=== PATIENT | female | born 1945 | race Caucasian/White ===

== ENCOUNTER 2020-04-13 13:44 | Outpatient (CLI) | payer MEDICARE ==
--- NOTE | 2020-04-13 15:41 | MMO ---
Bilateral MAMMO Bilat Diag [facility]. CLINICAL HISTORY: Patient is 74 years old and is seen for diagnostic exam. The patient has no family history of breast cancer. The patient has no personal history of cancer. VIEWS: The views performed were: bilateral craniocaudal with tomosynthesis; bilateral mediolateral oblique with tomosynthesis; and bilateral mediolateral with tomosynthesis. FILMS COMPARED: The present examination has been compared to prior imaging studies performed at [facility] on 04/13/2020, and at [facility] on 05/07/2019 and 08/11/2019. This study has been interpreted with the assistance of computer-aided detection. MAMMOGRAM FINDINGS: The breasts are heterogeneously dense, which could obscure a lesion on mammography. There is a stable mass with associated dystrophic calcifications seen in the middle region of the right breast at 12 o'clock. There are no suspicious masses, suspicious calcifications, or new areas of architectural distortion. IMPRESSION: THERE IS NO MAMMOGRAPHIC EVIDENCE OF MALIGNANCY. A ROUTINE FOLLOW-UP MAMMOGRAM IN 1 YEAR IS RECOMMENDED. THE RESULTS OF THIS EXAM WERE SENT TO THE PATIENT. ACR BI-RADS Category 2 - Benign finding MAMMOGRAPHY NOTE: 1. A negative mammogram report should not delay a biopsy if a dominant of clinically suspicious mass is present. 2. Approximately 10% to 15% of breast cancers are not detected by mammography. 3. Adenosis and dense breasts may obscure an underlying neoplasm. Reported by: LOVE GALDAMEZ MD Electonically Signed: [id number]
--- NOTE | 2020-04-13 16:57 | ULT ---
RIGHT BREAST ULTRASOUND: 04/13/20 HISTORY: Follow-up of a nodule with associated calcification within the right breast seen at approximately 1 o 'clock position. COMPARISON: Outside mammogram and ultrasound study of 08/11/19 and today's mammogram. Real time imaging of the area of concern which was a tiny nodule with calcifications within the right breast at approximately 12 to 1 o'clock position was performed. It is difficult to definitely visual ize this nodule. The area was much better appreciated on the mammogram films and appears entirely sta ble as compared to the previous mammogram study. IMPRESSION: BIRADS 2: Benign Finding(s) Routine annual screening mammography (for women over age 40).
== END 2020-04-13 13:45 | disposition home or self-care (01) ==
LOC: BICMAMMO 13:44
PROVIDERS: ATTEND Physician Assistant Medical
DX: R92.8 Other abnormal and inconclusive findings on diagnostic imaging of breast (principal); I10 Essential (primary) hypertension; E11.9 Type 2 diabetes mellitus without complications; E78.2 Mixed hyperlipidemia; D64.9 Anemia, unspecified; E55.9 Vitamin D deficiency, unspecified
CPT/HCPCS: 76642; 77066; 80053; 80061; 81001; 82306; 83036; 85025; G0279

== ENCOUNTER 2021-07-13 11:51 | Outpatient (CLI) | payer MEDICARE | END 2021-07-13 11:52 | disposition home or self-care (01) | LOC: BICMRI 11:51 | PROVIDERS: ATTEND Physician Assistant Medical | DX: R51.9 Headache, unspecified (principal); R41.0 Disorientation, unspecified; R11.2 Nausea with vomiting, unspecified; E78.2 Mixed hyperlipidemia; E11.9 Type 2 diabetes mellitus without complications; I10 Essential (primary) hypertension; I67.89 Other cerebrovascular disease | CPT/HCPCS: 70551 ==

== ENCOUNTER 2021-09-28 17:00 | Outpatient (CLI) | payer MEDICARE | END 2021-09-28 17:01 | disposition home or self-care (01) | LOC: SLEEPLAB 17:00 | PROVIDERS: ATTEND Internal Medicine Critical Care Medicine | DX: G47.33 Obstructive sleep apnea (adult) (pediatric) (principal); R53.83 Other fatigue | CPT/HCPCS: 95806 ==

== ENCOUNTER 2022-11-05 20:49 | Inpatient (IN) | payer MEDICARE ==
[2022-11-05 21:58] LABS: #Eosinphils 0.1 thou/uL (0.0-0.7); #Lymphocytes 1.5 thou/uL (1.20-3.40); #Monocytes 0.8 thou/uL (0.11-0.59); #Neutrophils 8.9 thou/uL (1.40-6.50); %Basophils 0.3 % (0.0-1.0); %Eosinophils 0.9 % (0.0-10.0); %Lymphocytes 13.3 % (21.0-51.0); %Monocytes 6.8 % (0.0-10.0); %Neutrophils 78.8 % (42.0-75.0); Hemoglobin 14.9 g/dL (12.0-16.0); Mean Corpuscular HGB CONC 30.7 g/dL (32.0-36.0); Mean Corpuscular Hemoglobin 26.5 pg (27.0-31.0); Mean Corpuscular Volume 86.4 fl (78.0-98.0); Mean Platelet Volume 10.1 fL (7.4-10.4); Platelet Count 235 10x3/uL (130-400); RBC Distribution Width 15.8 % (11.5-14.5); Red Blood Cell (RBC) Count 5.61 mill/uL (4.20-5.40); White Blood Cell (WBC) Count 11.3 10x3/uL (4.8-10.8)
[2022-11-05 22:21] LABS: ALT (SGPT) 12 U/L (8-55); AST (SGOT) 12 U/L (5-34); Alkaline Phosphatase 81 U/L (40-110); Anion Gap 17 mmol/L (10-20); BUN (Urea Nitrogen) 38 mg/dL (9.8-20.1); Bilirubin, Total 0.4 mg/dL (0.2-1.2); Calc. Creatinine Clearance 0 mL/min (70-130); Calcium 9.8 mg/dL (7.8-10.44); Carbon Dioxide 24 mmol/L (23-31); Chloride 105 mmol/L (98-107); Estimated GFR 43; Glucose 151 mg/dL (83-110); Potassium 4.3 mmol/L (3.5-5.1); Sodium 142 mmol/L (136-145)
[2022-11-06] MEDS ORDERED: Ondansetron PF 4 MG/2 ML Vial IVP PRN (00:45)
[2022-11-06] MEDS ORDERED: Ondansetron ODT 4 MG TAB SL PRN (00:45)
[2022-11-06] MEDS ORDERED: hydrALAZINE 20 MG/ML VIAL SLOW IVP PRN (04:05)
[2022-11-06] MEDS ORDERED: Clopidogrel Bisulfate 75 MG TAB PO SCH (04:15)
[2022-11-06] MEDS ORDERED: Aspirin 81 mg Enteric Coated Tablet PO SCH (04:15)
[2022-11-06] MEDS ORDERED: Dextrose 50% Abboject 50 ML SYRINGE SLOW IVP PRN (04:41)
[2022-11-06] MEDS ORDERED: HumaLOG 300 UNITS/3 ML VIAL SC PRN (04:41)
[2022-11-06] MEDS ORDERED: Dextrose 5% in Water 1,000 ML IV PRN (04:41)
[2022-11-06] MEDS ORDERED: Aspirin Chewable 81 MG TAB ONE (04:58)
[2022-11-06] MEDS ORDERED: Clopidogrel Bisulfate 75 MG TAB ONE (04:58)
[2022-11-06 08:29] LABS: Bacteria/HPF 1+ HPF (None Seen); Bilirubin Negative (Negative); Blood, Urine Negative (Negative); Clarity Clear (Clear); Glucose, Urine (Dipstick) Greater than 1000 mg/dL (Negative); Ketone, Urine Negative (Negative); Leukocyte 500 Leu/uL (Negative); Nitrite Negative (Negative); Protein, Urine (Dipstick) Negative (Neg-Trace); RBC/HPF 0-3 HPF (0-3); Specific Gravity, Urine 1.026 (1.002-1.036); Squamous Epithelial None Seen HPF (0-3); Urobilinogen Normal mg/dL (Less than 2); WBC/HPF Greater than 50 HPF (0-3)
[2022-11-06] MEDS: Aspirin 81 mg Enteric Coated Tablet PO SCH (09:30)
[2022-11-06] MEDS: Enoxaparin Sodium 40 MG/0.4 ML SYRINGE SC SCH (09:30)
[2022-11-06] MEDS: cefTRIAXone\\ROCEPHIN 1 GM in Sodium Chloride 0.9% 100 ML IVPB SCH (09:30)
[2022-11-06] MEDS ORDERED: Enoxaparin Sodium 40 MG/0.4 ML SYRINGE ONE (09:42)
[2022-11-06] MEDS ORDERED: cefTRIAXone\\ROCEPHIN 1 GM VIAL ONE (09:42)
[2022-11-06] MEDS ORDERED: Aspirin 81 mg Enteric Coated Tablet ONE (09:42)
[2022-11-06] MEDS ORDERED: Magnevist 469MG/ML 20 ML VIAL ONE (15:43)
[2022-11-06 18:30] VITALS: BMI 28.6
[2022-11-06] MEDS: Atorvastatin Calcium 40 MG TAB PO SCH (20:47)
[2022-11-07 06:24] LABS: Cardiac Risk 6.2 (Less than 4.5)
[2022-11-07] MEDS ORDERED: FLU VACC QS2022-23(65YR UP)/PF 240 MCG/0.7 ML SYRINGE IM ONE (09:00)
[2022-11-07] MEDS ORDERED: Clopidogrel Bisulfate 75 MG TAB PO SCH (09:00)
[2022-11-07] MEDS: Enoxaparin Sodium 40 MG/0.4 ML SYRINGE SC SCH (09:47)
[2022-11-07] MEDS: Aspirin 81 mg Enteric Coated Tablet PO SCH (09:47)
[2022-11-07] MEDS: cefTRIAXone\\ROCEPHIN 1 GM in Sodium Chloride 0.9% 100 ML IVPB SCH (09:47)
[2022-11-07] MEDS: HumaLOG 300 UNITS/3 ML VIAL SC PRN (12:06)
[2022-11-07] MEDS: Atorvastatin Calcium 40 MG TAB PO SCH (21:16)
[2022-11-08 05:25] LABS: Hemoglobin 14.5 g/dL (12.0-16.0); Mean Corpuscular HGB CONC 30.3 g/dL (32.0-36.0); Mean Corpuscular Hemoglobin 26.2 pg (27.0-31.0); Mean Corpuscular Volume 86.5 fl (78.0-98.0); Mean Platelet Volume 10.4 fL (7.4-10.4); Platelet Count 247 10x3/uL (130-400); RBC Distribution Width 15.8 % (11.5-14.5); Red Blood Cell (RBC) Count 5.54 mill/uL (4.20-5.40); White Blood Cell (WBC) Count 8.7 10x3/uL (4.8-10.8)
[2022-11-08 05:29] LABS: Hemoglobin A1c 6.7 % (4.0-6.0)
[2022-11-08 05:49] LABS: Anion Gap 14 mmol/L (10-20); BUN (Urea Nitrogen) 23 mg/dL (9.8-20.1); Calc. Creatinine Clearance 57 mL/min (70-130); Calcium 9.6 mg/dL (7.8-10.44); Carbon Dioxide 26 mmol/L (23-31); Chloride 102 mmol/L (98-107); Estimated GFR 59; Glucose 148 mg/dL (83-110); Potassium 4.2 mmol/L (3.5-5.1); Sodium 138 mmol/L (136-145)
[2022-11-08] MEDS: HumaLOG 300 UNITS/3 ML VIAL SC PRN ×2 (06:20→11:43)
[2022-11-08] MEDS: Enoxaparin Sodium 40 MG/0.4 ML SYRINGE SC SCH (08:41)
[2022-11-08] MEDS: Aspirin 81 mg Enteric Coated Tablet PO SCH (08:41)
[2022-11-08] MEDS: cefTRIAXone\\ROCEPHIN 1 GM in Sodium Chloride 0.9% 100 ML IVPB SCH (08:42)
[2022-11-08] MEDS ORDERED: Metamucil PACK PO PRN (12:03)
[2022-11-08 15:53] VITALS: BP 132/71; TEMP 97.4
== END 2022-11-08 17:42 | DRG 65 ==
LOC: ERS 20:49 → ERHOLD 11-06 00:33 → NEURO 11-06 18:04 → OBSVTOIN 11-07 12:35
PROVIDERS: ADMIT Student in an Organized Health Care Education/Training Program; ATTEND Emergency Medicine
PROC: 4A10X4Z Monitoring of Central Nervous Electrical Activity, External Approach (ICD-10-PCS; principal; 2022-11-06)
DX: I63.9 Cerebral infarction, unspecified (principal); N17.9 Acute kidney failure, unspecified; N30.01 Acute cystitis with hematuria; E11.9 Type 2 diabetes mellitus without complications; I10 Essential (primary) hypertension; E86.0 Dehydration; E78.1 Pure hyperglyceridemia; F03.90 Unspecified dementia, unspecified severity, without behavioral disturbance, psychotic disturbance, mood disturbance, and anxiety; Z20.822 Contact with and (suspected) exposure to COVID-19; E78.00 Pure hypercholesterolemia, unspecified; G93.89 Other specified disorders of brain; G83.14 Monoplegia of lower limb affecting left nondominant side; Z86.73 Personal history of transient ischemic attack (TIA), and cerebral infarction without residual deficits; Z98.890 Other specified postprocedural states; Z90.710 Acquired absence of both cervix and uterus
CPT/HCPCS: 36415; 36416; 70450; 70551; 71045; 72158; 80048; 80053; 80061; 81003; 81015; 83036; 85025; 85027; 87086; 93306; 93880; 95816; 95819; 95957; 96372; 96374; 96376; A9579; G0378; J0696; J1650; J1815; J3490; U0003; U0005

== ENCOUNTER 2023-01-21 20:57 | Inpatient (IN) | payer MEDICARE ==
[2023-01-21 22:08] LABS: Bilirubin Negative (Negative); Blood, Urine Negative (Negative); Clarity Clear (Clear); Glucose, Urine (Dipstick) Greater than 1000 mg/dL (Negative); Ketone, Urine 40 mg/dL (Negative); Leukocyte 250 Leu/uL (Negative); Nitrite Negative (Negative); Protein, Urine (Dipstick) 10 mg/dL (Neg-Trace); RBC/HPF 0-3 HPF (0-3); Renal Epithelial 0-3 HPF (None Seen); Specific Gravity, Urine 1.031 (1.002-1.036); pH, Urine 5.5 (5.0-9.0)
[2023-01-21 22:23] LABS: Bacteria/HPF 1+ HPF (None Seen)
[2023-01-21 23:20] LABS: Hemoglobin 15.3 g/dL (12.0-16.0); Mean Corpuscular HGB CONC 29.9 g/dL (32.0-36.0); Mean Corpuscular Hemoglobin 26.5 pg (27.0-31.0); Mean Corpuscular Volume 88.6 fl (78.0-98.0); Mean Platelet Volume 9.9 fL (7.4-10.4); Platelet Count 296 10x3/uL (130-400); RBC Distribution Width 15.9 % (11.5-14.5); Red Blood Cell (RBC) Count 5.79 mill/uL (4.20-5.40); White Blood Cell (WBC) Count 9.6 10x3/uL (4.8-10.8)
[2023-01-21 23:40] LABS: ALT (SGPT) 25 U/L (8-55); AST (SGOT) 25 U/L (5-34); Albumin 4.1 g/dL (3.4-4.8); Alkaline Phosphatase 115 U/L (40-110); Anion Gap 17 mmol/L (10-20); BUN (Urea Nitrogen) 18 mg/dL (9.8-20.1); Bilirubin, Total 0.9 mg/dL (0.2-1.2); Calc. Creatinine Clearance 0 mL/min (70-130); Calcium 10.2 mg/dL (7.8-10.44); Carbon Dioxide 28 mmol/L (23-31); Chloride 100 mmol/L (98-107); Estimated GFR 58; Globulin 3.4 g/dL (2.4-3.5); Glucose 98 mg/dL (83-110); Potassium 3.8 mmol/L (3.5-5.1); Protein, Total 7.5 g/dL (5.8-8.1); Sodium 141 mmol/L (136-145)
[2023-01-21 23:42] LABS: Band 4 % (5-11); Lymphocytes 18 % (21-51); MDiff Complete? YES; Monocytes 12 % (0-10); Neutrophil 63 % (42-75); Platelet Morphology Comment Appears Adequate; RBC Morphology Normal; Reactive Lymphocytes 3 % (0-10)
[2023-01-22] MEDS ORDERED: cefTRIAXone\\ROCEPHIN 2 GM VIAL ONE (02:15)
[2023-01-22] MEDS ORDERED: Aspirin Chewable 81 MG TAB ONE ×2 (03:53→10:08)
[2023-01-22 06:20] VITALS: BMI 26.6
[2023-01-22 07:38] LABS: SARS-CoV-2 NAA Rapid Test Not Detected (NotDetected)
[2023-01-22] MEDS ORDERED: Labetalol HCl 100 MG/20 ML VIAL SLOW IVP PRN (08:21)
[2023-01-22] MEDS ORDERED: hydrALAZINE 20 MG/ML VIAL SLOW IVP PRN (08:21)
[2023-01-22] MEDS ORDERED: Dextrose 5% in Water 1,000 ML IV PRN (09:02)
[2023-01-22] MEDS ORDERED: Dextrose 50% Abboject 50 ML SYRINGE SLOW IVP PRN (09:02)
[2023-01-22] MEDS ORDERED: Lisinopril/Hydrochlorothiazide 20 mg/12.5 mg Tablet PO SCH (09:15)
[2023-01-22] MEDS ORDERED: Iopamidol-370 76% 500 ML 1 ML ONE (09:25)
[2023-01-22] MEDS ORDERED: Clopidogrel Bisulfate 75 MG TAB ONE (10:08)
[2023-01-22] MEDS: Clopidogrel Bisulfate 75 MG TAB PO SCH (10:16)
[2023-01-22] MEDS: Aspirin 81 mg Enteric Coated Tablet PO SCH (10:16)
[2023-01-22] MEDS ORDERED: Empagliflozin 10 MG TAB PO SCH (10:45)
[2023-01-23 05:31] LABS: Cardiac Risk 4.6 (Less than 4.5); Cholesterol 123 mg/dl (< 200 Desired); HDL Cholesterol 27 mg/dL (>60 Neg Risk); LDL Cholesterol, Calculated 72 mg/dL; Magnesium 1.8 mg/dL (1.6-2.6); Triglycerides 118 mg/dL (Less than 150)
[2023-01-23] MEDS ORDERED: Empagliflozin 10 MG TAB PO SCH (09:00)
[2023-01-23] MEDS ORDERED: Lisinopril/Hydrochlorothiazide 20 mg/12.5 mg Tablet PO SCH (09:00)
[2023-01-23] MEDS: Clopidogrel Bisulfate 75 MG TAB PO SCH (09:34)
[2023-01-23] MEDS: Aspirin 81 mg Enteric Coated Tablet PO SCH (09:34)
[2023-01-23] MEDS ORDERED: Atorvastatin Calcium 40 MG TAB PO SCH (13:15)
[2023-01-23 14:17] LABS: Anion Gap 14 mmol/L (10-20); BUN (Urea Nitrogen) 20 mg/dL (9.8-20.1); Calc. Creatinine Clearance 46 mL/min (70-130); Calcium 9.7 mg/dL (7.8-10.44); Carbon Dioxide 29 mmol/L (23-31); Chloride 98 mmol/L (98-107); Estimated GFR 52; Glucose 102 mg/dL (83-110); Potassium 4.1 mmol/L (3.5-5.1); Sodium 137 mmol/L (136-145)
[2023-01-23] MEDS: HumaLOG 300 UNITS/3 ML VIAL SC PRN (14:43)
[2023-01-24 05:55] LABS: Anion Gap 17 mmol/L (10-20); BUN (Urea Nitrogen) 21 mg/dL (9.8-20.1); Calc. Creatinine Clearance 46 mL/min (70-130); Calcium 9.5 mg/dL (7.8-10.44); Carbon Dioxide 26 mmol/L (23-31); Chloride 100 mmol/L (98-107); Estimated GFR 52; Glucose 117 mg/dL (83-110); Potassium 3.7 mmol/L (3.5-5.1); Sodium 139 mmol/L (136-145)
[2023-01-24 06:08] LABS: Band 3 % (5-11); Eosinophils 1 % (0-10); Hemoglobin 14.6 g/dL (12.0-16.0); Lymphocytes 24 % (21-51); MDiff Complete? YES; Mean Corpuscular HGB CONC 30.2 g/dL (32.0-36.0); Mean Corpuscular Hemoglobin 26.7 pg (27.0-31.0); Mean Corpuscular Volume 88.5 fl (78.0-98.0); Mean Platelet Volume 9.9 fL (7.4-10.4); Monocytes 16 % (0-10); Neutrophil 55 % (42-75); Platelet Count 282 10x3/uL (130-400); Platelet Morphology Comment Appears Adequate; RBC Distribution Width 15.8 % (11.5-14.5); RBC Morphology Normal; Reactive Lymphocytes 1 % (0-10); Red Blood Cell (RBC) Count 5.47 mill/uL (4.20-5.40); White Blood Cell (WBC) Count 8.9 10x3/uL (4.8-10.8)
[2023-01-24] MEDS: Clopidogrel Bisulfate 75 MG TAB PO SCH (08:31)
[2023-01-24] MEDS: Aspirin 81 mg Enteric Coated Tablet PO SCH (08:31)
[2023-01-24] MEDS: HumaLOG 300 UNITS/3 ML VIAL SC PRN (11:56)
[2023-01-24] MEDS ORDERED: Ipratropium/Albuterol 3 ML NEB NEB SCH (12:00)
[2023-01-24] MEDS ORDERED: Ipratropium/Albuterol 3 ML NEB NEB PRN (14:43)
[2023-01-24] MEDS: Atorvastatin Calcium 40 MG TAB PO SCH (20:40)
[2023-01-24] MEDS ORDERED: Doxycycline 100 MG in Sodium Chloride 0.9% 100 ML IVPB SCH (21:00)
[2023-01-25 05:23] LABS: #Eosinphils 0.2 thou/uL (0.0-0.7); #Lymphocytes 1.2 thou/uL (1.20-3.40); #Monocytes 0.6 thou/uL (0.11-0.59); #Neutrophils 6.5 thou/uL (1.40-6.50); %Basophils 0.2 % (0.0-1.0); %Eosinophils 1.9 % (0.0-10.0); %Lymphocytes 14.5 % (21.0-51.0); %Monocytes 7.5 % (0.0-10.0); Hemoglobin 14.3 g/dL (12.0-16.0); Mean Corpuscular HGB CONC 30.3 g/dL (32.0-36.0); Mean Corpuscular Hemoglobin 26.8 pg (27.0-31.0); Mean Corpuscular Volume 88.5 fl (78.0-98.0); Mean Platelet Volume 10.3 fL (7.4-10.4); Platelet Count 251 10x3/uL (130-400); Red Blood Cell (RBC) Count 5.32 mill/uL (4.20-5.40); White Blood Cell (WBC) Count 8.6 10x3/uL (4.8-10.8)
[2023-01-25 05:48] LABS: Anion Gap 16 mmol/L (10-20); BUN (Urea Nitrogen) 23 mg/dL (9.8-20.1); Calc. Creatinine Clearance 53 mL/min (70-130); Calcium 9.1 mg/dL (7.8-10.44); Carbon Dioxide 22 mmol/L (23-31); Chloride 103 mmol/L (98-107); Estimated GFR 61; Glucose 111 mg/dL (83-110); Potassium 3.7 mmol/L (3.5-5.1); Sodium 137 mmol/L (136-145)
[2023-01-25] MEDS ORDERED: fentaNYL PF 100 MCG/2 ML SYRINGE ONE ×2 (06:07→08:34)
[2023-01-25] MEDS ORDERED: Midazolam HCl 2 mg/2 ml Vial ONE (06:07)
[2023-01-25] MEDS ORDERED: Bupivacaine HCl 0.5%/Epinephrine 1:200,000/PF 30 ml Vial ONE (06:30)
[2023-01-25] MEDS ORDERED: Heparin 5,000 UNITS/ML VIAL ONE (06:30)
[2023-01-25] MEDS ORDERED: Protamine Sulfate 50 MG/5 ML VIAL ONE (06:30)
[2023-01-25] MEDS ORDERED: Lidocaine 1% MPF 2 ML VIAL ONE (06:34)
[2023-01-25] MEDS ORDERED: CEFAZOLIN 2 GM VIAL ONE (07:22)
[2023-01-25] MEDS ORDERED: Sodium Chloride 0.9% 100 ML ONE (07:22)
[2023-01-25] MEDS ORDERED: Ondansetron PF 4 MG/2 ML Vial ONE (07:31)
[2023-01-25] MEDS ORDERED: Labetalol HCl 100 MG/20 ML VIAL ONE (07:31)
[2023-01-25] MEDS ORDERED: Rocuronium Bromide 10 MG/ML (10ML VIAL) ONE (07:31)
[2023-01-25] MEDS ORDERED: Dexamethasone 20 MG/5 ML VIAL ONE (07:31)
[2023-01-25] MEDS ORDERED: SUGAMMADEX SODIUM 200 MG/2 ML VIAL ONE (08:34)
[2023-01-25] MEDS ORDERED: Phenylephrine 40 MG in Sodium Chloride 0.9% 250 ML 250 ML IVPB PRN (08:58)
[2023-01-25] MEDS ORDERED: niCARdipine 25 MG in Sodium Chloride 0.9% 250 ML 250 ML IVPB PRN (08:58)
[2023-01-25] MEDS ORDERED: Ondansetron PF 4 MG/2 ML Vial IVP PRN (08:58)
[2023-01-25] MEDS ORDERED: Acetaminophen 325 MG TAB PO PRN (08:58)
[2023-01-25] MEDS ORDERED: traMADol HCl 50 MG TAB PO PRN (08:58)
[2023-01-25] MEDS ORDERED: Ipratropium/Albuterol 3 ML NEB NEB PRN (08:58)
[2023-01-25] MEDS ORDERED: Sodium Chloride 0.9% 1,000 ML IV SCH (09:00)
[2023-01-25] MEDS: Aspirin 81 mg Enteric Coated Tablet PO SCH (11:52)
[2023-01-25] MEDS: Clopidogrel Bisulfate 75 MG TAB PO SCH (11:52)
[2023-01-25] MEDS: CEFAZOLIN 2 GM in Sodium Chloride 0.9% 100 ML IVPB SCH ×2 (15:13→23:28)
[2023-01-25] MEDS: Atorvastatin Calcium 40 MG TAB PO SCH (20:59)
[2023-01-26 04:29] LABS: Hemoglobin 13.1 g/dL (12.0-16.0); Mean Corpuscular HGB CONC 29.9 g/dL (32.0-36.0); Mean Corpuscular Hemoglobin 26.6 pg (27.0-31.0); Mean Corpuscular Volume 89.1 fl (78.0-98.0); Mean Platelet Volume 10.3 fL (7.4-10.4); Platelet Count 272 10x3/uL (130-400); RBC Distribution Width 16.1 % (11.5-14.5); Red Blood Cell (RBC) Count 4.93 mill/uL (4.20-5.40); White Blood Cell (WBC) Count 12.4 10x3/uL (4.8-10.8)
[2023-01-26 04:42] LABS: Anion Gap 13 mmol/L (10-20); BUN (Urea Nitrogen) 21 mg/dL (9.8-20.1); Calc. Creatinine Clearance 57 mL/min (70-130); Calcium 8.4 mg/dL (7.8-10.44); Carbon Dioxide 23 mmol/L (23-31); Chloride 107 mmol/L (98-107); Estimated GFR 67; Glucose 124 mg/dL (83-110); Potassium 3.8 mmol/L (3.5-5.1); Sodium 139 mmol/L (136-145)
[2023-01-26 05:12] LABS: Band 7 % (5-11); Eosinophils 3 % (0-10); Hypochromia SLIGHT = 6-15 cells (100X) (0-5/hpf); Lymphocytes 9 % (21-51); MDiff Complete? YES; Monocytes 6 % (0-10); Neutrophil 75 % (42-75); Ovalocytes SLIGHT = 2-5 cells (100X) (0-1/hpf); Platelet Morphology Comment Appears Adequate; Schistocytes SLIGHT = 2-5 cells (100X) (0-1/hpf); Stomatocytes SLIGHT = 2-5 cells (100X) (0-1/hpf)
[2023-01-26] MEDS: CEFAZOLIN 2 GM in Sodium Chloride 0.9% 100 ML IVPB SCH (06:45)
[2023-01-26] MEDS: Aspirin 81 mg Enteric Coated Tablet PO SCH (10:03)
[2023-01-26] MEDS: Clopidogrel Bisulfate 75 MG TAB PO SCH (10:03)
[2023-01-26 10:44] VITALS: BP 150/64
[2023-01-26 13:41] VITALS: TEMP 98.3
== END 2023-01-26 13:45 | DRG 38 ==
LOC: ERS 20:57 → ERHOLD 01-22 04:16 → NEURO 01-22 11:54 → CCU 01-25 07:08
PROVIDERS: ADMIT Student in an Organized Health Care Education/Training Program; ATTEND Internal Medicine
PROC: 5A09457 Assistance with Respiratory Ventilation, 24-96 Consecutive Hours, Continuous Positive Airway Pressure (ICD-10-PCS; 2023-01-22)
PROC: 03CL0ZZ Extirpation of Matter from Left Internal Carotid Artery, Open Approach (ICD-10-PCS; principal; 2023-01-25)
PROC: 03UL0KZ Supplement Left Internal Carotid Artery with Nonautologous Tissue Substitute, Open Approach (ICD-10-PCS; 2023-01-25)
DX: I63.532 Cerebral infarction due to unspecified occlusion or stenosis of left posterior cerebral artery (principal); I69.352 Hemiplegia and hemiparesis following cerebral infarction affecting left dominant side; N39.0 Urinary tract infection, site not specified; I65.22 Occlusion and stenosis of left carotid artery; I10 Essential (primary) hypertension; Z66 Do not resuscitate; D72.829 Elevated white blood cell count, unspecified; R26.9 Unspecified abnormalities of gait and mobility; H53.40 Unspecified visual field defects; R29.705 NIHSS score 5; E11.51 Type 2 diabetes mellitus with diabetic peripheral angiopathy without gangrene; Z79.82 Long term (current) use of aspirin; Z79.899 Other long term (current) drug therapy; Z79.84 Long term (current) use of oral hypoglycemic drugs; Z98.890 Other specified postprocedural states; Z90.710 Acquired absence of both cervix and uterus; Z82.49 Family history of ischemic heart disease and other diseases of the circulatory system; Z83.3 Family history of diabetes mellitus; Z20.822 Contact with and (suspected) exposure to COVID-19; F03.A0 Unspecified dementia, mild, without behavioral disturbance, psychotic disturbance, mood disturbance, and anxiety
CPT/HCPCS: 36415; 36416; 70450; 70496; 70498; 70551; 71045; 80048; 80053; 80061; 81003; 81015; 83036; 83735; 84145; 84484; 85025; 93005; 93923; 94640; 95712; 95819; 95957; 96365; C1768; C1776; J0696; J1100; J1642; J1644; J1650; J1815; J2250; J2405; J2720; J3490; J7620; Q9967

== ENCOUNTER 2023-11-30 19:16 | Inpatient (IN) | payer MEDICARE ==
[2023-11-30 20:11] LABS: #Eosinphils 0.2 thou/uL (0.0-0.7); #Monocytes 0.7 thou/uL (0.11-0.59); #Neutrophils 9.6 thou/uL (1.40-6.50); %Basophils 0.3 % (0.0-1.0); %Eosinophils 1.5 % (0.0-10.0); %Lymphocytes 6.8 % (21.0-51.0); %Monocytes 6.1 % (0.0-10.0); %Neutrophils 84.9 % (42.0-75.0); Hematocrit 48.8 % (36.0-47.0); Hemoglobin 13.8 g/dL (12.0-16.0); Mean Corpuscular HGB CONC 28.3 g/dL (32.0-36.0); Mean Corpuscular Hemoglobin 23.7 pg (27.0-31.0); Mean Corpuscular Volume 83.7 fl (78.0-98.0); Mean Platelet Volume 11.5 fL (7.4-10.4); Platelet Count 275 10x3/uL (130-400); RBC Distribution Width 18.4 % (11.5-14.5); Red Blood Cell (RBC) Count 5.83 mill/uL (4.20-5.40); White Blood Cell (WBC) Count 11.2 10x3/uL (4.8-10.8)
[2023-11-30 20:32] LABS: ALT (SGPT) 11 U/L (8-55); AST (SGOT) 17 U/L (5-34); Albumin 3.7 g/dL (3.4-4.8); Alkaline Phosphatase 103 U/L (40-110); Anion Gap 15 mmol/L (10-20); Anisocytosis SLIGHT = 6-15 cells HPF (0-5); BUN (Urea Nitrogen) 24 mg/dL (9.8-20.1); Bilirubin, Total 0.6 mg/dL (0.2-1.2); Burr Cells SLIGHT = 2-5 cells HPF (0-1); Calc. Creatinine Clearance 0 mL/min (70-130); Calcium 8.9 mg/dL (7.8-10.44); Carbon Dioxide 21 mmol/L (23-31); CellaVision Operator ID lab.abc; Chloride 106 mmol/L (98-107); Elliptocytes SLIGHT = 2-5 cells HPF (0-1); Estimated GFR 62; Globulin 3.2 g/dL (2.4-3.5); Glucose 126 mg/dL (83-110); Magnesium 1.8 mg/dL (1.6-2.6); Platelet Adequacy Comment Platelets Normal; Poikilocytosis SLIGHT = 6-15 cells HPF (0-5); Protein, Total 6.9 g/dL (5.8-8.1); Schistocytes SLIGHT = 2-5 cells HPF (0-1); Sodium 138 mmol/L (136-145)
[2023-11-30 20:43] LABS: Troponin I Less than 0.010 ng/mL (< 0.028)
[2023-11-30] MEDS ORDERED: Ondansetron PF 4 MG/2 ML Vial IVP PRN (21:50)
[2023-11-30] MEDS ORDERED: Ondansetron ODT 4 MG TAB PO PRN (21:50)
[2023-11-30] MEDS ORDERED: hydrALAZINE 20 MG/ML VIAL SLOW IVP PRN (21:50)
[2023-11-30] MEDS ORDERED: Acetaminophen 650 MG Suppository PR PRN (21:50)
[2023-11-30] MEDS ORDERED: Dextrose 50% Abboject 50 ML SYRINGE SLOW IVP PRN (22:32)
[2023-11-30] MEDS ORDERED: Dextrose 5% in Water 1,000 ML IV PRN (22:32)
[2023-11-30] MEDS ORDERED: HumaLOG 300 UNITS/3 ML VIAL SC PRN ×2 (22:32)
[2023-11-30] MEDS ORDERED: Glucagon 1 MG/ML KIT IM PRN (22:32)
[2023-11-30] MEDS ORDERED: Aspirin Chewable 81 MG TAB PO SCH (23:00)
[2023-12-01 00:21] VITALS: BMI 24.5
[2023-12-01] MEDS ORDERED: Aspirin Chewable 81 MG TAB ONE (00:25)
[2023-12-01 00:38] LABS: Troponin I 0.011 ng/mL (< 0.028)
[2023-12-01] MEDS ORDERED: Melatonin 3 MG TAB PO PRN (02:33)
[2023-12-01] MEDS ORDERED: Ipratropium/Albuterol 3 ML NEB NEB PRN (02:34)
[2023-12-01 02:40] LABS: #Eosinphils 0.2 thou/uL (0.0-0.7); #Monocytes 0.6 thou/uL (0.11-0.59); %Basophils 0.4 % (0.0-1.0); %Eosinophils 1.5 % (0.0-10.0); %Lymphocytes 9.5 % (21.0-51.0); %Monocytes 5.6 % (0.0-10.0); %Neutrophils 82.6 % (42.0-75.0); Hematocrit 45.8 % (36.0-47.0); Hemoglobin 13.1 g/dL (12.0-16.0); Mean Corpuscular HGB CONC 28.6 g/dL (32.0-36.0); Mean Corpuscular Hemoglobin 23.2 pg (27.0-31.0); Mean Corpuscular Volume 81.2 fl (78.0-98.0); Mean Platelet Volume 11.5 fL (7.4-10.4); Platelet Count 279 10x3/uL (130-400); RBC Distribution Width 18.2 % (11.5-14.5); Red Blood Cell (RBC) Count 5.64 mill/uL (4.20-5.40); White Blood Cell (WBC) Count 10.8 10x3/uL (4.8-10.8)
[2023-12-01] MEDS ORDERED: Acetaminophen 325 MG TAB ONE (03:03)
[2023-12-01 03:05] LABS: Troponin I Less than 0.010 ng/mL (< 0.028)
[2023-12-01] MEDS: Acetaminophen 325 MG TAB PO PRN ×2 (03:09→08:32)
[2023-12-01] MEDS: Melatonin 3 MG TAB PO PRN ×2 (03:10→20:06)
[2023-12-01 03:26] LABS: Anion Gap 14 mmol/L (10-20); BUN (Urea Nitrogen) 22 mg/dL (9.8-20.1); Calc. Creatinine Clearance 49 mL/min (70-130); Calcium 8.7 mg/dL (7.8-10.44); Carbon Dioxide 23 mmol/L (23-31); Chloride 105 mmol/L (98-107); Cholesterol 102 mg/dl (< 200 Desired); Estimated GFR 60; Glucose 108 mg/dL (83-110); Potassium 3.4 mmol/L (3.5-5.1); Sodium 139 mmol/L (136-145); Triglycerides 95 mg/dL (Less than 150)
[2023-12-01 05:03] LABS: Cardiac Risk 3.3 (Less than 4.5); HDL Cholesterol 32 mg/dL (>60 Neg Risk); LDL Cholesterol, Calculated 54 mg/dL
[2023-12-01] MEDS: Aspirin 81 mg Enteric Coated Tablet PO SCH (08:31)
[2023-12-01] MEDS: Atorvastatin Calcium 40 MG TAB PO SCH (08:31)
[2023-12-01] MEDS: Clopidogrel Bisulfate 75 MG TAB PO SCH (08:31)
[2023-12-01] MEDS ORDERED: Aspirin 81 mg Enteric Coated Tablet PO SCH (09:00)
[2023-12-01] MEDS ORDERED: Potassium Chloride 20 MEQ TAB PO SCH (11:00)
[2023-12-01] MEDS: Donepezil HCl 10 MG TAB PO SCH (20:06)
[2023-12-02] MEDS ORDERED: Cyclobenzaprine 10 MG TAB PO SCH (04:45)
[2023-12-02] MEDS: Sertraline 25 MG TAB PO SCH (11:19)
[2023-12-02] MEDS: Atorvastatin Calcium 40 MG TAB PO SCH (11:19)
[2023-12-02] MEDS: Empagliflozin 25 MG TAB PO SCH (11:19)
[2023-12-02] MEDS: Aspirin 81 mg Enteric Coated Tablet PO SCH (11:19)
[2023-12-02] MEDS: Clopidogrel Bisulfate 75 MG TAB PO SCH (11:19)
[2023-12-02] MEDS: Acetaminophen 325 MG TAB PO PRN (11:20)
[2023-12-02] MEDS ORDERED: Cyclobenzaprine 10 MG TAB PO PRN (15:45)
[2023-12-02] MEDS: Melatonin 3 MG TAB PO PRN (20:31)
[2023-12-02] MEDS: Donepezil HCl 10 MG TAB PO SCH (20:32)
[2023-12-03 05:22] LABS: #Eosinphils 0.1 thou/uL (0.0-0.7); #Monocytes 0.5 thou/uL (0.11-0.59); #Neutrophils 6.9 thou/uL (1.40-6.50); %Basophils 0.3 % (0.0-1.0); %Eosinophils 1.5 % (0.0-10.0); %Lymphocytes 11.9 % (21.0-51.0); %Monocytes 5.9 % (0.0-10.0); %Neutrophils 79.8 % (42.0-75.0); Hematocrit 45.8 % (36.0-47.0); Hemoglobin 12.9 g/dL (12.0-16.0); Mean Corpuscular HGB CONC 28.2 g/dL (32.0-36.0); Mean Corpuscular Hemoglobin 23.6 pg (27.0-31.0); Mean Corpuscular Volume 83.7 fl (78.0-98.0); Mean Platelet Volume 11.9 fL (7.4-10.4); Platelet Count 276 10x3/uL (130-400); RBC Distribution Width 18.2 % (11.5-14.5); Red Blood Cell (RBC) Count 5.47 mill/uL (4.20-5.40); White Blood Cell (WBC) Count 8.7 10x3/uL (4.8-10.8)
[2023-12-03 06:19] LABS: CellaVision Operator ID lab.abc; Elliptocytes SLIGHT = 2-5 cells HPF (0-1); Large Platelets 11.7 % (0-5); Platelet Adequacy Comment Platelets Normal; Poikilocytosis SLIGHT = 6-15 cells HPF (0-5); Smudge Cells 5.8 %
[2023-12-03 06:30] LABS: Anion Gap 17 mmol/L (10-20); BUN (Urea Nitrogen) 23 mg/dL (9.8-20.1); Calc. Creatinine Clearance 48 mL/min (70-130); Calcium 8.6 mg/dL (7.8-10.44); Carbon Dioxide 23 mmol/L (23-31); Chloride 104 mmol/L (98-107); Estimated GFR 58; Glucose 90 mg/dL (83-110); Potassium 3.8 mmol/L (3.5-5.1); Sodium 140 mmol/L (136-145)
[2023-12-03] MEDS: Sertraline 25 MG TAB PO SCH (09:57)
[2023-12-03] MEDS: Atorvastatin Calcium 40 MG TAB PO SCH (09:58)
[2023-12-03] MEDS: Clopidogrel Bisulfate 75 MG TAB PO SCH (09:58)
[2023-12-03] MEDS: Aspirin 81 mg Enteric Coated Tablet PO SCH (09:59)
[2023-12-03] MEDS: Acetaminophen 325 MG TAB PO PRN (10:00)
[2023-12-03] MEDS: Empagliflozin 25 MG TAB PO SCH (10:00)
[2023-12-03] MEDS ORDERED: Cyclobenzaprine 10 MG TAB PO PRN (14:00)
[2023-12-03] MEDS: Melatonin 3 MG TAB PO PRN (20:53)
[2023-12-03] MEDS: Donepezil HCl 10 MG TAB PO SCH (20:53)
[2023-12-04 05:09] LABS: #Basophils 0.1 thou/uL (0.0-0.2); #Eosinphils 0.2 thou/uL (0.0-0.7); #Monocytes 0.6 thou/uL (0.11-0.59); #Neutrophils 8.1 thou/uL (1.40-6.50); %Basophils 0.5 % (0.0-1.0); %Eosinophils 1.6 % (0.0-10.0); %Lymphocytes 9.4 % (21.0-51.0); %Monocytes 6.2 % (0.0-10.0); %Neutrophils 81.5 % (42.0-75.0); Hematocrit 46.5 % (36.0-47.0); Mean Corpuscular Hemoglobin 23.4 pg (27.0-31.0); Mean Corpuscular Volume 83.6 fl (78.0-98.0); Mean Platelet Volume 12.5 fL (7.4-10.4); Platelet Count 283 10x3/uL (130-400); RBC Distribution Width 18.3 % (11.5-14.5); Red Blood Cell (RBC) Count 5.56 mill/uL (4.20-5.40); White Blood Cell (WBC) Count 9.9 10x3/uL (4.8-10.8)
[2023-12-04 05:39] LABS: Anion Gap 10 mmol/L (10-20); BUN (Urea Nitrogen) 22 mg/dL (9.8-20.1); Calc. Creatinine Clearance 45 mL/min (70-130); Calcium 8.9 mg/dL (7.8-10.44); Carbon Dioxide 30 mmol/L (23-31); Chloride 102 mmol/L (98-107); Estimated GFR 54; Glucose 122 mg/dL (83-110); Potassium 4.1 mmol/L (3.5-5.1); Sodium 138 mmol/L (136-145)
[2023-12-04] MEDS: Aspirin 81 mg Enteric Coated Tablet PO SCH (09:58)
[2023-12-04] MEDS: Clopidogrel Bisulfate 75 MG TAB PO SCH (09:58)
[2023-12-04] MEDS: Empagliflozin 25 MG TAB PO SCH (09:58)
[2023-12-04] MEDS: Sertraline 25 MG TAB PO SCH (09:58)
[2023-12-04] MEDS: Atorvastatin Calcium 40 MG TAB PO SCH (09:59)
[2023-12-04 15:31] VITALS: BP 133/63; TEMP 97.8
== END 2023-12-04 18:10 | DRG 65 ==
LOC: ERS 19:16 → ERHOLD 21:13 → 2SE 12-01 05:10
PROVIDERS: ADMIT Student in an Organized Health Care Education/Training Program; ATTEND Internal Medicine
DX: I63.9 Cerebral infarction, unspecified (principal); G81.94 Hemiplegia, unspecified affecting left nondominant side; E11.9 Type 2 diabetes mellitus without complications; I10 Essential (primary) hypertension; G47.33 Obstructive sleep apnea (adult) (pediatric); F32.A Depression, unspecified; E87.6 Hypokalemia; D75.839 Thrombocytosis, unspecified; F03.90 Unspecified dementia, unspecified severity, without behavioral disturbance, psychotic disturbance, mood disturbance, and anxiety; Z90.710 Acquired absence of both cervix and uterus; Z86.73 Personal history of transient ischemic attack (TIA), and cerebral infarction without residual deficits; Z88.8 Allergy status to other drugs, medicaments and biological substances; Z79.82 Long term (current) use of aspirin; Z79.899 Other long term (current) drug therapy
CPT/HCPCS: 36415; 36416; 70450; 70551; 71045; 80048; 80053; 80061; 83735; 84484; 85025; 93005; 93306; 93880; J1815